=== PATIENT | male | born 2000 | race Caucasian/White ===

== ENCOUNTER 2023-01-05 09:24 | Outpatient (RCR) | payer OTHER | END 2023-01-27 | disposition home or self-care (01) | LOC: WSOH | DX: S46.911A Strain of unspecified muscle, fascia and tendon at shoulder and upper arm level, right arm, initial encounter (principal); Y99.0 Civilian activity done for income or pay; F41.8 Other specified anxiety disorders; K50.90 Crohn's disease, unspecified, without complications; T78.40XA Allergy, unspecified, initial encounter ==